=== PATIENT | female | born 1955 | race Caucasian/White ===

== ENCOUNTER 2021-01-13 12:04 | Emergency (ER) | payer OTHER, SELFPAY ==
--- NOTE | ~2021-01-13 | XR_ITS ---
EXAMINATION: XR SACRUM AND COCCYX CLINICAL INFORMATION: Fall, trauma, pain COMPARISON: None TECHNIQUE: The sacrum and coccyx are imaged together in 3 views. FINDINGS: The sacrum 6. Appear intact. There is no fracture or destructive process. Uniform bony mineralization is seen. The SI joints show no diastases or erosive changes or subchondral sclerosis. The pubis and visualized hips are unremarkable. There are multilevel degenerative changes involving the lumbar spine with disc narrowing L1-L2 through L4-L5 along with subchondral sclerosis, vertebral spurring, and facet degeneration. XR/XR sacrum coccyx min 2V IMPRESSION: 1. No visible fracture. No diastases SI joints or pubis. 2. Multilevel degenerative changes lumbar spine.
--- NOTE | ~2021-01-13 | XR_ITS ---
EXAMINATION: XR CHEST CLINICAL INFORMATION: Cough. COMPARISON: Portable chest and chest CTA both dated 08/01/2013. TECHNIQUE: 2 views of the chest were obtained. FINDINGS: No significant abnormality is noted involving the heart, lungs, mediastinum, bony thorax or soft tissues. XR/XR chest 2V IMPRESSION: No acute cardiopulmonary process.
[2021-01-13 12:13] VITALS: BP 101/62; PULSE 80; RESP 20; TEMP 36.6; O2SAT 93; BMI 23.8
--- NOTE | 2021-01-13 12:38 | ED_ITS ---
HPI - Alcohol General Chief Complaint: ETOH/Substance Use Stated Complaint: etoh Time Seen by Provider: 01/13/21 12:11 Source: patient Mode of arrival: EMS Limitations: no limitations History of Present Illness HPI narrative: Patient comes emergency room complaining of pain in the tailbone . Patient states she drinks a lot of alcohol, states 2 days ago she fell and landed on her buttocks. Since then she has been having pain . Patient denies hitting her head, no loss of consciousness, no headache or neck pain. Patient denies urinary/fecal incontinence/retention. Patient also states that she is suicidal, she would plan to overdose by taking a lot of tablets. Related Data Allergies Allergy/AdvReac Type Severity Reaction Status Date / Time No Known Allergies Allergy Unverified 03/14/20 15:54 [No Known Allergies*] Review of Systems Review of Systems: Constitutional : No Weight loss, No Fever, No Chills, No Night Sweats, No Fatigue, No Malaise ENT/Mouth : No Hearing loss, No Ear Pain, No Nasal Congestion, No Sinus Pain, No Hoarseness, No sore throat, No Rhinorrhea, No Swallowing Difficulty Eyes: No Eye Pain, No Swelling, No Redness, No Foreign Body, No Discharge, No Vision Changes Cardiovascular : No Chest Pain, No SOB, No Dyspnea on Exertion, No Orthopnea, No Edema, No Palpitations Respiratory : No Cough, No Sputum, No Wheezing, No Smoke Exposure, No Dyspnea Gastrointestinal : No Nausea, No Vomiting, No Diarrhea, No Constipation, No abdominal Pain, No Hematochezia, No Melena Genitourinary : no irregular bleeding, No Dysuria, No Urinary Frequency, No Hematuria, No Urinary Incontinence, No Urgency, No Flank Pain, No Urinary Flow Changes, No Hesitancy Musculoskeletal : Complaining of pain in the coccyx, No Myalgias, No Joint Swe lling Skin : Multiple ecchymoses at different stages of healing Neuro : No Weakness, No Numbness, No Paresthesias, No Loss of Consciousness, No Dizziness, No Headache Psych : Complaining of suicidal ideation, planning to go over those with bunch of tablets, denies suicidal ideation Heme/Lymph: No Bruising, No Bleeding,No Lymphadenopathy Endocrine : No Polyuria, No Polydipsia, No Temperature Intolerance [facility] Past Medical History Medical History (Updated 07/19/21 @ 12:46 by Paulo Kennedy MD) Alcoholism Social History Social History Advance Directives: No Advance Directives Information Provided: No Patient : No Physical Exam Vital Signs: Vital Signs: Last Vital Signs Temp 98 F 01/13/21 12:13 Pulse 80 01/13/21 12:13 Resp 20 01/13/21 12:13 BP 101/62 01/13/21 12:13 Pulse Ox 93 01/13/21 12:13 Body Mass Index 23.8 Appearance: Alert. Oriented X3. No acute distress. Eyes: Pupils equal, round and reactive to light. ENT: Pharynx normal. Neck: Normal inspection. Neck supple. No lymph nodes noted. No crepitus CVS: Normal heart rate and rhythm. Pulses normal. Normal S1 and S2 Respiratory: No respiratory distress. Breath sounds normal. No Wheezing. No rales Abdomen: Soft and nontender. No rigidity. No distention. Skin: Skin warm and dry. Patient has a large healing ecchymosis on the left side of the face, Extremities: No lower extremity edema. Patient has been to palpation over the coccyx Neuro: Oriented X 3. No motor deficit. No sensory deficit. Moving all extermities. No slurred speech. Course Course Course Narrative: Patient's labs are pending, [facility] consult pending for suicidal ideation. X-ray negative for fracture [facility] consult still pending. Sign-out given to Dr. Laureano [facility] - Alcohol Lab Data Result diagrams: 01/13/21 13:05 01/13/21 13:05 Labs: Lab Results 01/13/21 01/13/21 01/13/21 Range/Units 13:05 13:05 13:05 WBC 5.4 (4.8-10.8) X10*3/uL RBC 3.59 L (4.20-5.50) X10*6/uL Hgb 12.3 (12.0-16.0) g/dl Hct 36.9 L (37-47) % MCV 102.8 H (80-98) fL MCH 34.3 H (27.0-33.0) pg MCHC 33.3 (31.0-35.0) g/dl RDW 14.0 (11.0-16.0) % Plt Count 314 (160-400) X10*3/uL MPV 8.6 L (9.4-12.3) fL Immature Gran % (Auto) 0.2 (0.0-0.4) % Neut % (Auto) 36.6 L (45-73) % Lymph % (Auto) 52.7 H (20-40) % [place] % (Auto) 6.8 (2-11) % Eos % (Auto) 2.8 (0-4) % Baso % (Auto) 0.9 (0-2) % Lymph # (Auto) 2.9 (1.2-4.9) X10*3/uL [place] # (Auto) 0.4 (0.1-1.2) X10*3/uL Eos # (Auto) 0.2 (0.0-0.4) X10*3/uL Baso # (Auto) 0.1 (0.0-0.2) X10*3/uL Abs Immat Gran (auto) 0.01 (0.00-0.03) X10*3/uL Absolute Neuts (auto) 2.0 (2.0-8.3) X10*3/uL Absolute Nucleated RBC 0.000 (0.0-0.012) X10*3/uL Nucleated RBC % (auto) 0.0 (0.0-0.2) /100WBC Sodium 143 (135-145) mmol/L Potassium 4.0 (3.3-5.1) mmol/L Chloride 99 (96-108) mmol/L Carbon Dioxide 36 H (22-29) mmol/L Anion Gap 12 (12-20) BUN 6 L (9-16) mg/dL Creatinine 0.64 (0.5-1.4) mg/dL Estim Creat Clear Calc 70.2 Estimated GFR > 60 Random Glucose 95 (60-115) mg/dL Calcium 9.4 (8.4-10.2) mg/dL Total Bilirubin 0.3 (0.0-1.0) mg/dL Direct Bilirubin < 0.2 (0.0-0.5) mg/dL AST 22 (5-31) U/L ALT 8 (0-31) U/L Alkaline Phosphatase 83 (39-117) U/L Total Protein 6.0 L (6.5-8.0) g/dL Albumin 3.4 L (3.5-5.0) g/dL Urine Color Urine Appearance Urine pH (5.0-8.0) Ur Specific [place] (1.005-1.025) Urine Protein (NEG-TRACE) MG/DL Urine Glucose (UA) (NEG) MG/DL Urine Ketones (NEG) MG/DL Urine Blood (NEG) Urine Nitrite (NEG) Ur Leukocyte Esterase (NEG) Urine Opiates Screen (Not Detect) Ur Barbiturates Screen (Not Detect) Ur Phencyclidine Scrn (Not Detect) Ur Amphetamines Screen (Not Detect) U Benzodiazepines Scrn (Not Detect) Urine Cocaine Screen (Not Detect) U Marijuana (THC) Screen (Not Detect) Ethyl Alcohol 259 mg/dL 01/13/21 01/13/21 Range/Units 13:59 13:59 WBC (4.8-10.8) X10*3/uL RBC (4.20-5.50) X10*6/uL Hgb (12.0-16.0) g/dl Hct (37-47) % MCV (80-98) fL MCH (27.0-33.0) pg MCHC (31.0-35.0) g/dl RDW (11.0-16.0) % Plt Count (160-400) X10*3/uL MPV (9.4-12.3) fL Immature Gran % (Auto) (0.0-0.4) % Neut % (Auto) (45-73) % Lymph % (Auto) (20-40) % [place] % (Auto) (2-11) % Eos % (Auto) (0-4) % Baso % (Auto) (0-2) % Lymph # (Auto) (1.2-4.9) X10*3/uL [place] # (Auto) (0.1-1.2) X10*3/uL Eos # (Auto) (0.0-0.4) X10*3/uL Baso # (Auto) (0.0-0.2) X10*3/uL Abs Immat Gran (auto) (0.00-0.03) X10*3/uL Absolute Neuts (auto) (2.0-8.3) X10*3/uL Absolute Nucleated RBC (0.0-0.012) X10*3/uL Nucleated RBC % (auto) (0.0-0.2) /100WBC Sodium (135-145) mmol/L Potassium (3.3-5.1) mmol/L Chloride (96-108) mmol/L Carbon Dioxide (22-29) mmol/L Anion Gap (12-20) BUN (9-16) mg/dL Creatinine (0.5-1.4) mg/dL Estim Creat Clear Calc Estimated GFR Random Glucose (60-115) mg/dL Calcium (8.4-10.2) mg/dL Total Bilirubin (0.0-1.0) mg/dL Direct Bilirubin (0.0-0.5) mg/dL AST (5-31) U/L ALT (0-31) U/L Alkaline Phosphatase (39-117) U/L Total Protein (6.5-8.0) g/dL Albumin (3.5-5.0) g/dL Urine Color YELLOW Urine Appearance CLEAR Urine pH 6.0 (5.0-8.0) Ur Specific [place] <= 1.005 (1.005-1.025) Urine Protein NEG (NEG-TRACE) MG/DL Urine Glucose (UA) NEG (NEG) MG/DL Urine Ketones NEG (NEG) MG/DL Urine Blood NEG (NEG) Urine Nitrite NEG (NEG) Ur Leukocyte Esterase NEG (NEG) Urine Opiates Screen Not Detected (Not Detect) Ur Barbiturates Screen Not Detected (Not Detect) Ur Phencyclidine Scrn Not Detected (Not Detect) Ur Amphetamines Screen Not Detected (Not Detect) U Benzodiazepines Scrn Not Detected (Not Detect) Urine Cocaine Screen Not Detected (Not Detect) U Marijuana (THC) Screen Not Detected (Not Detect) Ethyl Alcohol mg/dL Imaging Data Sacrum and coccyx: Radiologist's impression: [address] [id number] ReportSigned Patient: Javi Mccarty#: [id number]: [id number]:[id number]/Sex: 65 / FADM Date: 01/13/21Loc: HO.EDAttending Dr: Ordering Physician: PAULO KENNEDY MD Date of Service: 01/13/21 Procedure(s): XR sacrum coccyx min 2V Accession Number(s): [id number] cc: PAULO KENNEDY MD~ EXAMINATION: XR SACRUM AND COCCYX CLINICAL INFORMATION: Fall, trauma, pain COMPARISON: None TECHNIQUE: The sacrum and coccyx are imaged together in 3 views. FINDINGS: The sacrum 6. Appear intact. There is no fracture or destructive process. Uniform bony mineralization is seen. The SI joints show no diastases or erosive changes or subchondral sclerosis. The pubis and visualized hips are unremarkable. There are multilevel degenerative changes involving the lumbar spine with disc narrowing L1-L2 through L4-L5 along with subchondral sclerosis, vertebral spurring, and facet degeneration. XR/XR sacrum coccyx min 2V IMPRESSION: 1. No visible fracture. No diastases SI joints or pubis. 2. Multilevel degenerative changes lumbar sp Discharge Plan Discharge Clinical Impression: Alcoholism, Suicidal ideation
--- NOTE | 2021-01-13 12:46 | PC.NURSE ---
First contact with patient. Pt is tearful and appears intoxicated. Pt admits to drinking alcohol today. Pt states she had two 16 ounce alcohol beverages today. Pt has SI and says everyone just criticizes her then begins to cry more
--- NOTE | 2021-01-13 13:56 | PC.NURSE ---
Pt changed over with security, cooperative, belongings placed in locker 10.
[2021-01-13 14:06] LABS: Glucose Urine UA NEG (NEG); Leukocyte Esterase Urine NEG (NEG); Nitrite Urine NEG (NEG); Specific Gravity - Urine <= 1.005 (1.005-1.025); Urine Blood NEG (NEG); Urine Ketones NEG (NEG); Urine Protein NEG (NEG-TRACE)
[2021-01-13 14:06] LABS: MANUAL DIFF FLAG NO
[2021-01-13 14:08] LABS: Appearance Urine CLEAR; Color Urine YELLOW
[2021-01-13 14:08] LABS: Basophils Absolute Auto 0.1 X10*3/uL (0.0-0.2); Basophils Percent Auto 0.9 % (0-2); Eosinophils Absolute Auto 0.2 X10*3/uL (0.0-0.4); Eosinophils Percent Auto 2.8 % (0-4); Hematocrit 36.9 % (37-47); Hemoglobin 12.3 g/dl (12.0-16.0); Imm Gran Abs Auto 0.01 X10*3/uL (0.00-0.03); Imm Gran Pct Auto 0.2 % (0.0-0.4); Lymphocytes Absolute Auto 2.9 X10*3/uL (1.2-4.9); Lymphocytes Percent Auto 52.7 % (20-40); Mean Corpuscular HGB Conc 33.3 g/dl (31.0-35.0); Mean Corpuscular Hemoglobin 34.3 pg (27.0-33.0); Mean Corpuscular Volume 102.8 fL (80-98); Mean Platelet Volume 8.6 fL (9.4-12.3); Monocytes Absolute Auto 0.4 X10*3/uL (0.1-1.2); Monocytes Percent Auto 6.8 % (2-11); Neutrophils Percent Auto 36.6 % (45-73); Platelet Count 314 X10*3/uL (160-400); Red Blood Count 3.59 X10*6/uL (4.20-5.50); White Blood Count 5.4 X10*3/uL (4.8-10.8)
[2021-01-13 14:33] LABS: Ethanol 259 mg/dL
[2021-01-13 14:35] LABS: Alanine Aminotransferase 8 U/L (0-31); Albumin Level 3.4 g/dL (3.5-5.0); Alkaline Phosphatase 83 U/L (39-117); Anion Gap 12 (12-20); Aspartate Amino Transferase 22 U/L (5-31); Bilirubin Direct < 0.2 mg/dL (0.0-0.5); Bilirubin Total 0.3 mg/dL (0.0-1.0); Blood Urea Nitrogen 6 mg/dL (9-16); Calcium 9.4 mg/dL (8.4-10.2); Carbon Dioxide 36 mmol/L (22-29); Chloride 99 mmol/L (96-108); Creatinine Clr Calc Pharmacy 70.2; Estimated Glomerular Filt Rate > 60; Glucose Random 95 mg/dL (60-115); Sodium 143 mmol/L (135-145)
[2021-01-13 14:36] LABS: Amphetamine Screen Urine Not Detected (Not Detect); Barbiturates, Urine Not Detected (Not Detect); Benzodiazepines Screen Urine Not Detected (Not Detect); Cannabinoid Screen Urine Not Detected (Not Detect); Cocaine Screen Urine Not Detected (Not Detect); Opiate Screen Urine Not Detected (Not Detect); Phencyclidine Screen Urine Not Detected (Not Detect)
--- NOTE | 2021-01-13 15:40 | PC.NURSE ---
Patient is lying in bed asleep at this time in no distress
[2021-01-13] MEDS: Albuterol Sulfate 90 MCG 8 GM INHALER 2 PUFF INHALE (20:53)
--- NOTE | 2021-01-13 23:49 | PC.NURSE ---
Patient was up ambulated to bathroom with supervised assist. No c/o pain or discomfort at this time
--- NOTE | 2021-01-14 00:30 | MHC.CARE ---
Re: pt awaiting crisis assessment. Clinically sober for assessment ~8PM. There was no documentation to confirm whether pt's medical summary had been sent via smart sheets or fax to [facility] triage or crisis office earlier this evening. CARE team followed up with [facility] overnight triage re: status of pt awaiting evaluation. No referral had been received. This comic writer provided verbal clinical for referral, triage will call back with ETA for assessment.
[2021-01-14] MEDS: Benzonatate 100 MG CAPSULE 200 MG PO (00:54)
[2021-01-14] MEDS: Albuterol Sulfate 90 MCG 8 GM INHALER 2 PUFF INHALE (00:54)
[2021-01-14 01:23] VITALS: BP 147/83; PULSE 76; RESP 18; TEMP 37.1; O2SAT 95
--- NOTE | 2021-01-14 01:25 | MHC.CARE ---
[facility] here to evaluate pt.
== END 2021-01-14 02:59 | disposition home or self-care (01) ==
PROVIDERS: Emergency Provider Emergency Medicine; PCP Internal Medicine
DX: F10.20 Alcohol dependence, uncomplicated (principal); Y90.8 Blood alcohol level of 240 mg/100 ml or more; R45.851 Suicidal ideations
CPT/HCPCS: 36415; 71046; 72220; 80048; 80076; 80307; 81003; 82077; 85025; 99284